=== PATIENT | male | born 1975 | race Caucasian/White ===

== ENCOUNTER 2024-10-18 06:54 | Emergency (ER) | payer OTHER, SELFPAY ==
--- NOTE | ~2024-10-18 | XR_ITS ---
CHEST RADIOGRAPH, PA AND LATERAL CLINICAL HISTORY: left lower chest pain WITH ITCHING AND RASH . COMPARISON: None available TECHNIQUE: PA and lateral views of the chest. FINDINGS The cardiomediastinal silhouette is unremarkable. The lungs are clear. Visualized osseous structures and soft tissues are unremarkable. IMPRESSION: No focal infiltrate or effusion. Reviewed, dictated and finalized at location []
--- OUTSIDE RECORDS SUMMARY | 2024-10-18 06:57 | XMS_ITS | Clinical Summary ---
Author Organization [facility] Address [facility] [place] [address] Care Team Providers Care Human Resources Manager Name Role Phone None, Provider MD Primary Care Provider Unavaila ble Allergies Active Allergy Reactions Criticality Noted Date Comments Diphenhydramine Rash Low 07/05/2011 Medications No known medications Active Problems Problem Noted Date Diagnosed Date Pain in joint, shoulder region 07/05/2011 Overview (07/02/2018): Note: sudeep shoulder pain chronic Encounters Date Type Department Care Team Description 09/12/2024 3:40 PM CDT Office Visit [address] [place] [address] Tiffanie Cowan APRN Arm Pain (Pt is here for a cyst that is on his right arm. ) 09/12/2024 Travel from Last 3 Months Immunizations Immunization Administration Dates Next Due Dtap (Generic) 06/27/2018 Influenza Adult (Generic) 04/15/2020 MODERNA COVID-19 (12+) MRNA, LNP-S, PF, 100 MCG/ 0.5 ML DOSE 09/30/2020,09/02/2020 Family History Medical History Relation Comments Diabetes Father Alcohol Abuse Sister Relation Status Comments Father Alive Mother Alive Sister Alive Social History Tobacco Use Types Packs/Day Years Used Date Smoking Tobacco: Never Smokeless Tobacco: Never Tobacco Cessation:Counseling Given: No Alcohol Use Standard Drinks/Week Comments Yes 0 (1 standard drink = 0.6 oz pure alcohol) weekends, mixed drinks or beers. 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 file Not on file Not on file Last Filed Vital Signs Vital Sign Reading Time Taken Comments Blood Pressure 128/70 09/12/2024 3:32 PM CDT Pulse 97 09/12/2024 3:32 PM CDT Temperature 37.1 C (98.7 F) 09/12/2024 3:32 PM CDT Respiratory Rate 16 09/12/2024 3:32 PM CDT Oxygen Saturation 98% 09/12/2024 3:32 PM CDT Inhaled Oxygen Concentration - - Weight 91.9 kg (202 lb 9.6 oz) 09/12/2024 3:32 P M CDT Height 180.3 cm (5' 11 ) 09/12/2024 3:32 PM CDT Body Mass Index 28.26 09/12/2024 3:32 PM CDT Plan of Treatment Health Maintenance Due Date Last Done Comments Colorectal Cancer Screening Colonoscopy (10 Years) 1977 Annual Physical 1980 Hepatitis C 1995 Hepatitis B Vaccines (1 of 3 - 19+ 3-dose series) 1996 COVID-19 Vaccine (2023-2 5 season) 2024 05/31/2021, 09/30/2020, 09/02/2020 DTaP, Tdap and Td Vaccines ( 2 - Tdap) 06/27/2028 06/27/2018 PHQ-2 (Physician [place]) Completed 09/12/2024 Meningococcal B Vaccine Aged Out No l onger eligible based on patient's age to complete this topic Meningococcal Vaccine Aged Out No luis indu eligible based on patient's age to complete this topic Pneumococcal Vaccine: Pediatrics (0 to 5 Years) and At-Risk Patients (6 to 49 Years) Aged Out No longer eligible b ased on patient's age to complete this topic RSV Immunizations Under 20 Months Aged Out No longer eligible b ased on patient's age to complete this topic Insurance [facility] Advance Directives Documents on File Type Date Recorded 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
[2024-10-18 07:19] VITALS: BP 120/91; PULSE 81; RESP 16; TEMP 36.6; O2SAT 100
--- NOTE | 2024-10-18 07:22 | ED_ITS ---
HPI - Abdominal Pain General Chief Complaint: Skin/Abscess/Foreign Body Stated Complaint: left side pain Time Seen by Provider: 10/18/24 07:16 History of Present Illness HPI narrative: Pt presents with left side pain since yesterday with rash starting in same area. Pt says it hurts when he takes a deep breath. Pt denies cough or SOB or urinary complaints. Related Data Allergies Allergy/AdvReac Type Severity Reaction Status Date / Time Penicillins Allergy Unknown Rash Verified 10/18/24 07:22 Review of Systems 2 Review of Systems: All systems reviewed & are unremarkable except as noted in HPI and below Exam 2 Const: General: healthy appearing and no acute distress Nutritional Appearance: well nourished Orientation/consciousness: patient oriented x3 Limitations: no limitations Neck: Neck: normal visual inspection Chest: Chest palpation & inspection: normal inspection of the chest Resp: Effort & Inspection: normal respiratory effort Auscultation: clear to auscultation bilaterally Cardio: Rate: regular rate Rhythm: regular rhythm GI: GI Palp: Yes Soft to palpation Auscultation: normal bowel sounds Back/Spine/Pelvis: Back: no CVA tenderness Skin: Other: erythematous papular rash in several very small patches no vesicles but along dermatomal distribution Neuro: General: patient oriented x3, moves all extremities, no meningeal signs, no focal motor deficits and CN's II-XI intact bilaterally Extrem: General: normal to inspection and no clubbing, cyanosis or edema Psych: Mental Status: mental status grossly normal Affect: normal affect Attitude: cooperative Course Vital Signs Vital signs: Vital Signs Temperature 97.9 F 10/18/24 07:19 Pulse Rate 81 10/18/24 07:19 Respiratory Rate 16 10/18/24 07:19 Blood Pressure 120/91 H 10/18/24 07:19 Pulse Oximetry 100 10/18/24 07:19 Oxygen Delivery Room Air 10/18/24 07:19 Temperature 97.9 F 10/18/24 07:19 Pulse Rate 65 10/18/24 09:30 Respiratory Rate 18 10/18/24 09:30 Blood Pressure 115/77 10/18/24 09:30 Pulse Oximetry 98 10/18/24 09:30 Oxygen Delivery Room Air 10/18/24 07:19 MDM - Abdominal Pain MDM Narrative Medical decision making narrative: with rash along dermatome and pain in area could be shingles, will check UA to make sure not pyelonephritis and labs and cxr to rule out pneumonia and pneumothorax as well as d dimer to rule out PE. labs ua and cxr all neg. likely shingles. home on valtrex and prednisone and a few norco. Lab Data 10/18/24 07:30 10/18/24 07:30 Labs: Lab Results 10/18/24 10/18/24 Range/Units 07:30 08:33 WBC 6.5 (4.5-10.0) K/mm3 RBC 5.61 (4.6-6.20) M/mm3 Hgb 15.8 (14.0-18.0) g/dL Hct 50.4 (42.0-52.0) % MCV 89.8 (80-100) fl MCH 28.2 (26-34) pg MCHC 31.3 L (32-36) g/dl RDW 12.5 (11.5-14.5) % Plt Count 239 (150-375) k/mm3 MPV 8.8 (7.4-10.4) fl Immature Gran % (Auto) 0.2 (0-0.5) % Neut % (Auto) 56.5 (45.5-73.1) % Lymph % (Auto) 27.1 (18.3-44.2) % [place] % (Auto) 12.6 H (2.6-8.5) % Eos % (Auto) 2.8 (0-4.4) % Baso % (Auto) 0.8 (0.2-1.2) % Lymph # (Auto) 1.77 (0.9-3.2) K/mm3 [place] # (Auto) 0.8 H (0.1-0.6) K/mm3 Eos # (Auto) 0.2 (0-0.3) K/mm3 Baso # (Auto) 0.1 (0.0-0.1) K/mm3 Abs Immat Gran (auto) 0.01 (0.00-0.031) K/mm3 Absolute Neuts (auto) 3.7 (1.3-6.7) K/mm3 Absolute Nucleated RBC 0.000 (0.0-0.012) K/mm3 Nucleated RBC % 0.0 (0.0-0.2) % PT 13.5 (11.1-14.7) Seconds INR 1.0 APTT 34.8 (22.3-36.8) Seconds D-Dimer < 0.27 (<0.48) ug/mL Sodium 140 (137-145) mmol/L Potassium 4.4 (3.4-5.0) mmol/L Chloride 103 (98-107) mmol/L Carbon Dioxide 29 (22-30) mmol/L Anion Gap 8 (4-12) mmol/L BUN 16 (9-20) mg/dL Creatinine 0.98 (0.7-1.3) mg/dL Estim Creat Clear Calc 88 ml/min Estimated GFR > 60 (59 - ) Glucose 105 (65-110) mg/dL Calcium 9.5 (8.4-10.2) mg/dL Total Bilirubin 0.9 (0.2-1.3) mg/dL AST 44 (17-59) U/L ALT 57 H (6-50) U/L Alkaline Phosphatase 87 (38-126) U/L Total Protein 8.0 (6.3-8.2) g/dL Albumin 4.8 (3.5-5.1) g/dL Urine Color Yellow (Yellow) Urine Appearance Clear (Clear) Urine pH 7.5 (5.0-9.0) Ur Specific [place] 1.014 (1.001-1.035) Urine Protein Negative (Negative) mg/dL Urine Glucose (UA) Negative (Negative) mg/dL Urine Ketones Negative (Negative) mg/dL Ur Blood (Man) Negative (Negative) Urine Nitrate Negative (Negative) Urine Bilirubin Negative (Negative) Urine Urobilinogen 0.2 (<2.0) mg/dL Leukocyte Esterase Rfl Negative (Negative) SCOTT/UL Imaging Data Radiologist's impression: ITS Impressions Chest X-Ray 10/18/24 07:55 IMPRESSION: No focal infiltrate or effusion. Discharge Plan Discharge Clinical Impression: Herpes zoster Patient Disposition: Home Condition: Stable Instructions: Antibiotic Form, Shingles (ED) Patient Language: Turkmen Prescriptions: New valacyclovir [Valtrex] 1 gram tablet 1,000 mg PO Q8H Qty: 21 0RF prednisone 50 mg tablet 50 mg PO DAILY Qty: 5 0RF hydrocodone-acetaminophen 5-325 mg tablet 1 tablet PO Q6H PRN (Reason: pain) Qty: 10 0RF Follow-up/Referrals: PHYSICIAN NOT ON STAFF,NONSTAFF [Non-Staff] -
[2024-10-18 07:36] LABS: Basophils Absolute Auto 0.1 K/mm3 (0.0-0.1); Basophils Percent Auto 0.8 % (0.2-1.2); Eosinophils Absolute Auto 0.2 K/mm3 (0-0.3); Eosinophils Percent Auto 2.8 % (0-4.4); Hematocrit 50.4 % (42.0-52.0); Hemoglobin 15.8 g/dL (14.0-18.0); Immature Granulocyte Absolute 0.01 K/mm3 (0.00-0.031); Immature Granulocyte Percent A 0.2 % (0-0.5); Lymphocytes Absolute Auto 1.77 K/mm3 (0.9-3.2); Lymphocytes Percent Auto 27.1 % (18.3-44.2); Mean Corpuscular HGB Conc 31.3 g/dl (32-36); Mean Corpuscular Hemoglobin 28.2 pg (26-34); Mean Corpuscular Volume 89.8 fl (80-100); Mean Platelet Volume 8.8 fl (7.4-10.4); Monocytes Absolute Auto 0.8 K/mm3 (0.1-0.6); Monocytes Percent Auto 12.6 % (2.6-8.5); Neutrophils Absolute Auto 3.7 K/mm3 (1.3-6.7); Neutrophils Percent Auto 56.5 % (45.5-73.1); Platelet Count Result 239 k/mm3 (150-375); Red Blood Count 5.61 M/mm3 (4.6-6.20); Red Cell Distribution Width 12.5 % (11.5-14.5); White Blood Count 6.5 K/mm3 (4.5-10.0)
[2024-10-18] MEDS: KETOROLAC 30 MG/ML VIAL (*BKC) IV PUSH (07:42)
--- OUTSIDE RECORDS SUMMARY | 2024-10-18 07:42 | XMS_ITS | Clinical Summary ---
Author Organization [facility] Address [facility] [place] [address] Care Team Providers Care Tape Folding Machine Operator Name Role Phone None, Provider MD Primary Care Provider Unavaila ble Allergies Active Allergy Reactions Criticality Noted Date Comments Diphenhydramine Rash Low 07/05/2011 Medications No known medications Active Problems Problem Noted Date Diagnosed Date Pain in joint, shoulder region 07/05/2011 Overview (07/02/2018): Note: sudeep shoulder pain chronic Encounters Date Type Department Care Team Description 09/12/2024 3:40 PM CDT Office Visit [address] [place] [address] Tiffanie Cowan APRN Arm Pain [...] 2 - Tdap) 06/27/2028 06/27/2018 PHQ-2 (Physician [place]) Completed 09/12/2024 Meningococcal B Vaccine Aged Out [...] patient's age to complete this topic Insurance [facility] Advance Directives Documents on File Type Date Recorded 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
[2024-10-18 07:46] LABS: Alanine Aminotransferase 57 U/L (6-50); Albumin Level 4.8 g/dL (3.5-5.1); Alkaline Phosphatase 87 U/L (38-126); Anion Gap 8 mmol/L (4-12); Aspartate Amino Transferase 44 U/L (17-59); Bilirubin,Total 0.9 mg/dL (0.2-1.3); Blood Urea Nitrogen 16 mg/dL (9-20); Calcium 9.5 mg/dL (8.4-10.2); Carbon Dioxide 29 mmol/L (22-30); Chloride 103 mmol/L (98-107); Estimated CRCL calculation 88 ml/min; Estimated Glomerular Filt Rate > 60; Glucose 105 mg/dL (65-110); Potassium 4.4 mmol/L (3.4-5.0); Sodium 140 mmol/L (137-145)
[2024-10-18 08:00] LABS: Prothrombin Time 13.5 Seconds (11.1-14.7)
[2024-10-18 08:01] LABS: Partial Thromboplastin Time 34.8 Seconds (22.3-36.8)
[2024-10-18 08:05] LABS: D Dimer < 0.27 ug/mL (<0.48)
[2024-10-18 08:32] VITALS: BP 121/73; PULSE 71; RESP 16; O2SAT 98
[2024-10-18 08:40] LABS: Add Urine Microscopic? NO; Appearance Urine Clear (Clear); Bilirubin Urine Negative (Negative); Blood Urine Negative (Negative); Color Urine Yellow (Yellow); Glucose Urine UA Negative (Negative); Ketones Urine Negative (Negative); Leukocyte Esterase Ur Negative LEU/UL (Negative); Nitrate Urine Negative (Negative); Protein Urine Negative (Negative); Specific Grav Ur 1.014 (1.001-1.035); Urobilinogen Urine 0.2 mg/dL (<2.0); pH Urine 7.5 (5.0-9.0)
[2024-10-18 09:30] VITALS: BP 115/77; PULSE 65; RESP 18; O2SAT 98
== END 2024-10-18 09:32 | disposition home or self-care (01) ==
PROVIDERS: Emergency Provider Emergency Medicine
DX: B02.9 Zoster without complications (principal)
CPT/HCPCS: 36415; 71046; 80053; 81003; 85025; 85380; 85610; 85730; 96374; 99284; J1885